=== PATIENT | female | born 1965 ===

== ENCOUNTER 2021-07-10 15:16 | Inpatient (IN) ==
[~2021-07-10 15:16] MED LIST: AZITHROMYCIN INJ 500 MG in SODIUM CHLORIDE 0.9% 250 ML IV ONE
[2021-07-10] MEDS ORDERED: methylPREDNISolone SOD SUC 125 MG/2 ML VIAL IV STA (20:21)
[2021-07-10] MEDS ORDERED: ASPIRIN 325 MG TABLET PO STA (20:21)
[2021-07-10] MEDS ORDERED: ONDANSETRON 4 MG/2 ML VIAL IV STA (20:21)
[2021-07-10 20:37] LABS: Basophils % 0.2 % (0.0-0.8); Immature Granulocytes % 0.9 %; Immature Granulocytes Absolute 0.06 #; Lymphocytes % 14.5 % (21.3-54.2); Mean Corpuscular HGB Conc 31.9 GM/DL (32-36); Mean Platelet Volume 12.6 FL (9.6-12.0); Monocytes % 4.6 % (1.7-12.7); Neutrophils % 79.8 % (38.7-73.9); Platelet Count 248 T/CUMM (130-400); Red Blood Count 5.22 MC/CUMM (3.8-5.5); Red Cell Distribution Width 15.1 % (9.3-17.3); White Blood Count 6.6 T/CUMM (4-12)
[2021-07-10 20:43] LABS: PT Patient Result 11.5 SECS (10.5-12.0)
[2021-07-10 20:51] LABS: Albumin 2.8 G/DL (3.4-5.0); Bilirubin,Total 0.6 MG/DL (0.20-1.00); Calcium 8.7 MG/DL (8.5-10.1); Potassium 4.9 MMOL/L (3.5-5.1); Total Protein 8.1 G/DL (6.4-8.2)
[2021-07-10] MEDS ORDERED: ONDANSETRON 4 MG/2 ML VIAL IV PRN (23:08)
[2021-07-10] MEDS ORDERED: ACETAMINOPHEN 325 MG TABLET PO PRN (23:08)
[2021-07-10] MEDS ORDERED: GLUCAGON 1 MG VIAL IM PRN (23:08)
[2021-07-10] MEDS ORDERED: MELATONIN 3 MG TABLET PO PRN (23:08)
[2021-07-10] MEDS ORDERED: DEXTROSE 10% 250 ML BAG IV PRN ×2 (23:31→23:45)
[2021-07-11] MEDS ORDERED: AZITHROMYCIN INJ 500 MG in SODIUM CHLORIDE 0.9% 250 ML IV ONE
[2021-07-11] MEDS: ENOXAPARIN 40 MG/0.4 ML SYRINGE SUBCUT SCH ×2 (01:41→13:23)
[2021-07-11] MEDS ORDERED: hydrALAZINE 20 MG/1 ML VIAL IV PRN (05:27)
[2021-07-11 06:14] LABS: Basophils % 0.2 % (0.0-0.8); Hematocrit 44.1 VOL% (35.7-47.0); Hemoglobin 14.2 GM/DL (12.0-16.0); Immature Granulocytes % 0.9 %; Immature Granulocytes Absolute 0.05 #; Lymphocytes # 0.9 10*3/uL (1.4-4.0); Lymphocytes % 16.7 % (21.3-54.2); Mean Corpuscular HGB Conc 32.2 GM/DL (32-36); Mean Corpuscular Volume 90.7 FL (87-102); Mean Platelet Volume 12.2 FL (9.6-12.0); Monocytes % 3.8 % (1.7-12.7); Neutrophils % 78.4 % (38.7-73.9); Platelet Count 263 T/CUMM (130-400); Red Blood Count 4.86 MC/CUMM (3.8-5.5); Red Cell Distribution Width 16.7 % (9.3-17.3); White Blood Count 5.6 T/CUMM (4-12)
[2021-07-11 06:32] LABS: Lymphocytes 14 % (20-55); Platelet Estimate Adequate; Segmented Neutrophils 79 % (50-85); Total Cells Counted 100
[2021-07-11 07:24] LABS: Sedimentation Rate-Westergren 13 MM/HR (0-30)
[2021-07-11 07:53] LABS: Potassium 4.2 MMOL/L (3.5-5.1)
[2021-07-11 07:55] LABS: Calcium 8.9 MG/DL (8.5-10.1)
[2021-07-11 07:57] LABS: Osmolality,Calculated 273.1 MOS/KG (273-304)
[2021-07-11 08:04] LABS: Ferritin 759.7 ng/mL (8-252)
[2021-07-11] MEDS ORDERED: CHOLECALCIFEROL 1,000 UNIT TABLET PO SCH (09:00)
[2021-07-11] MEDS ORDERED: DEXAMETHASONE 4 MG/1 ML VIAL IV SCH (09:00)
[2021-07-11] MEDS ORDERED: cefTRIAXone 1,000 MG in SODIUM CHLORIDE 0.9% 100 ML IV SCH (09:00)
[2021-07-11] MEDS ORDERED: ZINC GLUCONATE 50 MG TABLET PO SCH (09:00)
[2021-07-11] MEDS ORDERED: CETIRIZINE 10 MG TABLET PO SCH (09:00)
[2021-07-11] MEDS ORDERED: methylPREDNISolone SOD SUC 40 MG/1 ML VIAL IV SCH (09:00)
[2021-07-11] MEDS ORDERED: ASCORBIC ACID 500 MG TABLET PO SCH (09:00)
[2021-07-11] MEDS ORDERED: FAMOTIDINE 20 MG TABLET PO SCH (09:00)
[2021-07-11 10:26] VITALS: BP 142/97
[2021-07-12] MEDS ORDERED: AZITHROMYCIN 250 MG TABLET PO SCH (09:00)
== END 2021-07-11 14:54 | disposition home or self-care (01) | DRG 177 ==
LOC: N.ED 15:16 → N.EDINP 07-11 01:27 → SUATTDRO 07-11 06:40 → N.EDINP 07-11 14:54
PROVIDERS: ADMIT Internal Medicine; ATTEND Internal Medicine